=== PATIENT | male | born 1980 | race Caucasian/White ===

== ENCOUNTER 2016-10-17 17:11 | Inpatient (IN) | payer OTHER ==
--- NOTE | ~2016-10-17 | PN ---
Unit #: [id number] #: [id number] Patient: TEO MOORE [id number] [facility] [address] [place] [address] [id number] I MR#: [id number] NAME: TEO MOORE ROOM: P206 Age: 36 Sex: M Admission Date: 10/17/2016 : 1980 Attending Physician: Reno hSanks M.D. Admitting Physician: Oliverio An NOTES DATE OF SERVICE: 10/18/2016 LENORA Torrez is a 36-year-old male, seen on 10/18/2016. The patient interviewed, chart reviewed, and obtained information from nursing staff. The patient was compliant, cooperative, isolative, guarded. Vital signs; temperature 98.9, pulse 132, blood pressure 128/87, height 5 feet 9 inches, weight 136 pounds. The patient is sad, depressed, withdrawn, isolative. Complete review of systems is unremarkable. MENTAL STATUS EXAMINATION General appearance, the patient dressed casually. Attention span and concentration, fair. Oriented in place and person. Mood and affect, sad and dysphoric. Speech, monotone. Thought process, concrete. The patient denied any thoughts of harming self or others or any psychotic symptom. Recent and remote memory, poor. Insight and judgment, poor. DIAGNOSES 1. Mood disorder, not otherwise specified. 2. Amphetamine use disorder, severe. ASSESSMENT AND PLAN Advised to continue with current medication and therapeutic protocol. We will monitor response to medication and make further adjustment of medication. Dictated by... Oliverio An/madi TD: 10/20/2016 07:01 JOB #: [id number] Unit #: [id number] #: [id number] Patient: TEO MOORE INDIGO NOTES Page 1 of 1 X Reno Shanks MD PROGRESS NOTE
--- NOTE | ~2016-10-17 | HP ---
Unit #: [id number] #: [id number] Patient: SHAN MOORE [id number] [place] [address] [id number] MR#: [id number] NAME: SHAN MOORE ROOM: P206 Age: 36 Sex: M Admission Date: 10/17/2016 : 1980 Attending Physician: Reno Shanks M.D. Admitting Physician: Reno Shanks M.D. HISTORY AND PHYSICAL HISTORY OF PRESENT ILLNESS Shan is a 36 year old admitted to [address] [place] [address] with depression verbalizing wanting to hurt himself. PAST MEDICAL HISTORY 1. Obesity 2. History of illicit substance abuse to include meth. PAST SURGICAL HISTORY Right elbow. ALLERGIES No known drug allergies. SOCIAL HISTORY She smokes one pack per day. Denies alcohol. Admits to a history of methamphetamine use. FAMILY HISTORY Medically noncontributory. REVIEW OF SYSTEMS CONSTITUTIONAL: No fever or chills. HEENT: Denies any sore throat, ear pain or runny nose. CARDIOVASCULAR: Denies chest pain, irregular heart rhythm or palpitations. CHEST: Denies shortness of breath or cough. No hemoptysis. GASTROINTESTINAL: Denies nausea, vomiting, diarrhea or chronic constipation. ENDOCRINE: Denies history of increased thirst or urination. No recent significant weight loss or gain. GENITOURINARY: Denies dysuria, frequency, or hematuria. SKIN: Denies any rashes. HEMATOLOGIC: Denies history of increased bleeding or bruising. MUSCULOSKELETAL: Denies any hot, swollen joints. No generalized muscle pain. NEUROLOGIC: Denies problems with vision or speech. No frequent, severe headaches. No numbness, tingling or weakness in any extremities. Denies loss of bladder or bowel control. CURRENT MEDICATIONS 1. Nicotine patch 14 mg daily Unit #: [id number] #: [id number] Patient: SHAN MOORE 2. Desyrel 100 mg q.h.s. 3. Milk of Magnesia p.r.n. 4. Maalox p.r.n. 5. Tylenol p.r.n. 6. Vistaril p.r.n. 7. Zyprexa 10 mg b.i.d. PHYSICAL EXAMINATION GENERAL: Alert, obese, in no apparent distress. VITAL SIGNS: Blood pressure 112/66, heart rate 80, respirations 16, temperature 98.6. WEIGHT: 236 pounds. HEIGHT: 5'9". SKIN: Warm and dry without rash or lesion. HEENT: Normocephalic. TMs not viewed. Oral and nasal passages clear. Conjunctivae clear. Pupils equal, round and reactive to light and accommodation. Extraocular movements intact. NECK: Supple without lymphadenopathy or thyromegaly. HEART: Regular rate and rhythm without murmur. LUNGS: Clear. ABDOMEN: Soft, nontender. : Not done. EXTREMITIES: No evidence of cyanosis, clubbing or edema. Moves all extremities without focal deficit. NEUROLOGICAL: Grossly within normal limits. Cranial Nerves: II: Visual blunt are intact. III, IV AND : Extraocular movements are intact. Pupils are equal, round and reactive to light. V: Facial sensation is grossly normal. VII: Facial movements and expression are normal. VIII: Auditory acuity grossly intact. IX, X: Uvula is midline. Phonation is normal. XI: Patient shrugs shoulders and turns head normally. XII: Tongue protrudes in the midline. Sensory and Motor Function: Sensory and motor sensation is grossly normal. Motor: moves all extremities well. Coordination: Gait is normal. Deep Tendon Reflexes: Intact. IMPRESSION Psychiatric admission. RECOMMENDATIONS PSYCHIATRIC: Per psychiatrist. MEDICAL: I see no contraindications to participating in facility's activities. MEDICAL PROGNOSIS Good. MEDICAL CONDITION Stable. Dictated by... Debora Lozada P.A.-C. for Oliva Aragon M.D. Unit #: [id number] #: [id number] Patient: SHAN MOORE AYLA/john TD: 10/18/2016 21:14 JOB #: [id number] HISTORY AND PHYSICAL Page 1 of 1 X Debora Lozada HISTORY AND PHYSICAL
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
[2016-10-18 09:21] LABS: BASOPHIL# 0.1 X10e3 (0-0.3); BASOPHIL% 0.6 % (0-2.5); EOSINOPHIL# 0.3 X10e3 (0-0.7); HEMATOCRIT 41.3 % (38.0-50.0); HEMOGLOBIN 13.9 gm/dL (13.0-16.0); LYMPHOCYTE% 36.2 % (17.0-45.0); MEAN CELL VOLUME 92.4 FL (83-96); MEAN CORPUSCULAR HEMOGLOBIN 31.1 PG (28-34); MEAN CORPUSCULAR HGB CONC 33.6 g/dL (30-36); MEAN PLATELET VOLUME 7.7 FL (6.5-11.5); MONOCYTE# 0.9 X10e3 (0-1.0); NEUTROPHIL# 4.1 X10e3 (1.5-7.1); NEUTROPHIL% 49.2 % (40-75); PLATELET COUNT 225 X10e3 (140-420); RED BLOOD COUNT 4.47 X10e (3.90-5.60); RED CELL DISTRIBUTION WIDTH 12.8 % (11.0-15.5); WHITE BLOOD COUNT 8.4 X10e3 (4.0-10.5)
[2016-10-18 09:28] LABS: URINE APPEARANCE CLEAR; URINE BILIRUBIN NEG (NEG); URINE BLOOD NEG (NEG); URINE COLOR YELLOW; URINE GLUCOSE NEG (NEG); URINE KETONE TRACE (NEG); URINE LEUKOCYTE ESTERASE TRACE (NEG); URINE NITRATE NEG (NEG); URINE PH 5.5 (5-8); URINE PROTEIN NEG (NEG); URINE SPECIFIC GRAVITY 1.017 (1.003-1.035); URINE UROBILINOGEN 0.2 MG/DL (NEG)
[2016-10-18 09:32] LABS: U HYALINE CASTS AUWI 0-2 /[LPF]; URBCS1 AUWI 0-2 /[HPF] (0-2); URINE BACTERIA AUWI NEG (NEGATIVE); URINE SQUAMOUS EPITHELIAL CELL NONE SEEN /[HPF]
[2016-10-18 09:44] LABS: THYROID STIMULATING HORMONE 1.03 uIU/ml (0.34-5.60)
[2016-10-18 09:47] LABS: ALBUMIN SERUM 4.3 g/dL (3.5-5.0); BUN/CREATININE RATIO 13.63; CALCIUM SERUM 9.5 mg/dL (8.4-10.2); CREATININE SERUM 1.1 mg/dL (0.6-1.4); GLOM FILT RATE Estimated 85.3 mL/min (>60); POTASSIUM 4.2 mmol/L (3.5-5.1); PROTEIN TOTAL SERUM 7.3 g/dL (6.0-8.3)
[2016-10-18 09:51] LABS: FREE THYROXIN (T4) 1.21 ng/dL (0.58-1.64)
[2016-10-18 09:53] LABS: DIFF IND NO
[2016-10-18 10:23] LABS: URINE MUCUS PRESENT; URINE SPERM PRESENT
[2016-10-18 10:41] LABS: AMPHETAMINE POS (NEG); BARBITURATES NEG (NEG); BENZODIAZEPINES NEG (NEG); COCAINE NEG (NEG); MARIJUANA NEG (NEG); OPIATES NEG (NEG); TRICYCLIC ANTIDEPRESSANTS POS (NEG); U METHADONE NEG (NEG)
[2016-10-20 08:04] LABS: HA AB IGM (HEPPAN) Nonreactive (Nonreactive); HB CORE AB IGM (HEPPAN) Nonreactive (Nonreactive); HB S AG (HEPPAN) Nonreactive (Nonreactive); HEP C AB (HEPPAN) Nonreactive (Nonreactive); HEP C AB SIGNAL TO CUTOFF 0.01 ratio (<1.00)
== END 2016-10-19 11:37 | DRG 881 ==
LOC: P2S 17:11
PROVIDERS: Psychiatry & Neurology Psychiatry
PROC: HZ2ZZZZ Detoxification Services for Substance Abuse Treatment (ICD-10-PCS; principal; 2016-10-17)
DX: F32.9 Major depressive disorder, single episode, unspecified (principal); F15.20 Other stimulant dependence, uncomplicated; F39 Unspecified mood [affective] disorder; E66.9 Obesity, unspecified; F17.200 Nicotine dependence, unspecified, uncomplicated
CPT/HCPCS: 80053; 80074; 80307; 81003; 84439; 84443; 85025; 87806